=== PATIENT | female | born 2005 | race Caucasian/White ===

== ENCOUNTER 2023-07-28 18:38 | Emergency (ER) | payer OTHER ==
[~2023-07-28] VITALS: Ht 157.5 cm; Wt 67.0 kg
[2023-07-28 20:18] LABS: BASOPHILS 0.3 % (0-2); EOSINOPHILS 2.3 % (0-6); HEMATOCRIT 33.9 % (35.0-50.0); HEMOGLOBIN 11.6 g/dL (12.0-18.0); LYMPHOCYTES 28.7 % (24-44); MCH 29.8 (27-36); MCHC 34.1 g/dl (30-36); MCV 87.5 fl (81-99); MONOCYTES 7.6 % (0-12); NEUTROPHILS 61.1 % (39-80); PLATELET COUNT 242 K/uL (140-440); RBC 3.87 M/ul (4.3-5.7); RDW 13.5 (10.5-15.0)
[2023-07-28 21:15] VITALS: BP 98/71
== END 2023-07-28 21:15 | disposition home or self-care (01) ==
LOC: ED 18:38
PROVIDERS: Family Medicine
DX: O72.1 Other immediate postpartum hemorrhage (principal); Z88.0 Allergy status to penicillin; Z91.048 Other nonmedicinal substance allergy status; Z79.899 Other long term (current) drug therapy
CPT/HCPCS: 36415; 76856; 85025; 99284-25; A9270